=== PATIENT | male | born 1960 | race Caucasian/White ===

== ENCOUNTER 2021-10-22 10:59 | Inpatient (IN) | payer MEDICARE, OTHER ==
[~2021-10-22] VITALS: Ht 170.2 cm; Wt 49.2 kg
[2021-10-22 11:57] LABS: BORDETELLA PARAPERTUSSIS Not Detected (Not Detectd); BORDETELLA PERTUSSIS Not Detected (Not Detectd); CHLAMYDIA PNEUMONIAE Not Detected (Not Detectd); CORONAVIRUS HKU1 Not Detected (Not Detectd); CORONAVIRUS NL63 Not Detected (Not Detectd); CORONAVIRUS OC43 Not Detected (Not Detectd); CORONOAVIRUS 229E Not Detected (Not Detectd); HUMAN METAPNEUMOVIRUS Not Detected (Not Detectd); HUMAN RHINOVIRUS/ENTEROVIRUS Not Detected (Not Detectd); INFLUENZA A Not Detected (Not Detectd); INFLUENZA B Not Detected (Not Detectd); MYCOPLASMA PNEUMONIAE Not Detected (Not Detectd); PARAINFLUENZA VIRUS 1 Not Detected (Not Detectd); PARAINFLUENZA VIRUS 2 Not Detected (Not Detectd); PARAINFLUENZA VIRUS 3 Not Detected (Not Detectd); PARAINFLUENZA VIRUS 4 Not Detected (Not Detectd); RESPIRATORY SYNCYTIAL VIRUS Not Detected (Not Detectd)
[2021-10-22 12:17] LABS: HEMOGLOBIN 8.5 gm/dl (14.0-17.5); RED BLOOD COUNT 3.21 M/UL (4.20-5.50); WHITE BLOOD COUNT 8.8 K/UL (4.5-11.0)
[2021-10-22 12:36] LABS: BUN/CREATININE RATIO 23 (0-10)
[2021-10-22 13:02] LABS: SARS-CoV-2 DETECTED (Not Detectd)
[2021-10-22] MEDS ORDERED: SINGULAIR4 MG PO (15:36)
[2021-10-22] MEDS ORDERED: SIMVASTATIN20 MG PO (15:36)
[2021-10-22] MEDS ORDERED: MIRALAX17 GM PO (15:37)
[2021-10-22] MEDS ORDERED: VOLTAREN ARTHRI20 GM TOP (15:37)
[2021-10-22] MEDS ORDERED: TRULICITY1.5 MG/0.5 SQ (15:38)
[2021-10-22] MEDS ORDERED: ENOXAPARIN40 MG/0.4 SQ (15:38)
[2021-10-22] MEDS ORDERED: HYDROCHLOROTH12.5 M1 PO (15:38)
[2021-10-22] MEDS ORDERED: OMEPRAZOLE20 MG PO (15:39)
[2021-10-22] MEDS ORDERED: LINZESS72 MCG PO (15:39)
[2021-10-23 04:18] LABS: HEMOGLOBIN 8.4 gm/dl (14.0-17.5); RED BLOOD COUNT 3.25 M/UL (4.20-5.50); WHITE BLOOD COUNT 9.3 K/UL (4.5-11.0)
[2021-10-23 05:43] LABS: BUN/CREATININE RATIO 19 (0-10)
[2021-10-24 04:43] LABS: HEMOGLOBIN 7.8 gm/dl (14.0-17.5)
[2021-10-24 04:47] LABS: WHITE BLOOD COUNT 4.1 K/UL (4.5-11.0)
[2021-10-24 05:27] LABS: BUN/CREATININE RATIO 22 (0-10)
[2021-10-25 03:53] LABS: HEMOGLOBIN 8.4 gm/dl (14.0-17.5); RED BLOOD COUNT 3.16 M/UL (4.20-5.50); WHITE BLOOD COUNT 4.7 K/UL (4.5-11.0)
[2021-10-25 23:25] LABS: ADENOVIRUS F 40/41 Not Detected (Negative); ASTROVIRUS Not Detected (Negative); CAMPYLOBACTER Not Detected (Negative); CLOSTRIDIUM DIFFICILE TOX A/B Not Detected (Negative); CRYPTOSPORIDIUM Not Detected (Negative); E.COLI 0157 Not Detected (Negative); ENTAMOEBA HISTOLYTICA Not Detected (Negative); ENTEROAGGREGATIVE E.COLI (EAEC Not Detected (Negative); ENTEROPATHOGENIC E.COLI (EPEC) Not Detected (Negative); ENTEROTOXIGENIC E.COLI (ETEC) Not Detected (Negative); GIARDIA LAMBLIA Not Detected (Negative); NOROVIRUS GI/GII Not Detected (Negative); PLESIOMONAS SHIGELLOIDES Not Detected (Negative); ROTOVIRUS A Not Detected (Negative); SALMONELLA Not Detected (Negative); SAPOVIRUS Not Detected (Negative); SHIG/ENTEROINVAS.ECOLI (EIEC) Not Detected (Negative); SHIGA-LIK TOX.PRO.E.COLI (STEC Not Detected (Negative); VIBRIO Not Detected (Negative); VIBRIO CHOLERAE Not Detected (Negative); YERSINIA ENTEROCOLITICA Not Detected (Negative)
[2021-10-27 11:40] LABS: RED BLOOD COUNT 3.16 M/UL (4.20-5.50); WHITE BLOOD COUNT 5.4 K/UL (4.5-11.0)
[2021-10-27 12:10] LABS: BUN/CREATININE RATIO 10 (0-10)
--- NOTE | 2021-10-27 13:31 | NUR ---
10/27/20 1325 SPOKE WITH PATIENT'S FAMILY. UPDATED ON PT STATUS, FLUIDS, BP, HR, ETC. [facility] WISHES TO CHANGE CODE STATUS FROM FULL CODE TO DNR/DNI. STATED THEY DIDN'T WANT ANY CHEST COMPRESSIONS DONE IT WOULD "PROB DO MORE DAMAGE THAN GOOD" DR VARGAS NOTIFIED WITH NEW ORDERS NOTED.
[2021-10-29 04:16] LABS: HEMOGLOBIN 8.7 gm/dl (14.0-17.5); RED BLOOD COUNT 3.44 M/UL (4.20-5.50)
[2021-10-29 04:20] LABS: WHITE BLOOD COUNT 8.8 K/UL (4.5-11.0)
[2021-10-29 04:35] LABS: BUN/CREATININE RATIO 9 (0-10)
[2021-10-31 12:34] LABS: HEMOGLOBIN 9.7 gm/dl (14.0-17.5); RED BLOOD COUNT 3.69 M/UL (4.20-5.50); WHITE BLOOD COUNT 6.6 K/UL (4.5-11.0)
[2021-10-31 12:43] LABS: BUN/CREATININE RATIO 9 (0-10)
[2021-11-06 03:36] LABS: HEMOGLOBIN 9.2 gm/dl (14.0-17.5); RED BLOOD COUNT 3.39 M/UL (4.20-5.50); WHITE BLOOD COUNT 7.3 K/UL (4.5-11.0)
[2021-11-06 04:02] LABS: BUN/CREATININE RATIO 17 (0-10)
[2021-11-06] MEDS ORDERED: FERROUS GLUCON324 M1 PO (11:54)
[2021-11-06] MEDS ORDERED: MIDODRINE HCL2.5 MG PO (11:54)
[2021-11-06] MEDS ORDERED: MULTAQ 400 MG400 MG PO (11:54)
[2021-11-06] MEDS ORDERED: CHRONULAC20 GM/30 M PO (11:54)
[2021-11-06] MEDS ORDERED: ACETAMINOPHEN325 MG PO (11:54)
[2021-11-06] MEDS ORDERED: [UNRECOGNIZED DRUG - OTHER] PO (11:54)
[2021-11-06] MEDS ORDERED: FLOMAX 0.4 MG0.4 MG PO (11:54)
[2021-11-06] MEDS ORDERED: ASPIRIN EC81 MG PO (11:54)
--- NOTE | 2021-11-06 16:47 | NUR ---
CALLED EMS AT 1330 TODAY TO REQUEST TRANSPORT FOR PATIENT TO [facility]. CALLED BACK TODAY AT 1645 FOR AN UPDATE, THE LIDAR ANALYST TOOK MY NUMBER AND SAID SHE WOULD CALL BACK WITH AN UPDATE
--- NOTE | 2021-11-06 17:44 | NUR ---
CALLED [facility] AGAIN ASKING ABOUT PATIENT TRANSPORT TO [facility]. DISPATCHER RETURNED THE CALL STATING THERE IS A CREW ON THEIR WAY HERE,
== END 2021-11-06 18:37 | DRG 177 ==
LOC: ER1 10:59 → CDU 15:34 → PROG CARE 15:34 → EDBD 15:34 → PROG CARE 17:13
PROVIDERS: Internal Medicine; Internal Medicine Infectious Disease; Physician Assistant Medical; ADMIT Internal Medicine
PROC: 8E0ZXY6 Isolation (ICD-10-PCS; principal; 2021-10-22)
PROC: XW033E5 Introduction of Remdesivir Anti-infective into Peripheral Vein, Percutaneous Approach, New Technology Group 5 (ICD-10-PCS; 2021-10-22)
PROC: 3E0333Z Introduction of Anti-inflammatory into Peripheral Vein, Percutaneous Approach (ICD-10-PCS; 2021-10-23)
PROC: B24BZZZ Ultrasonography of Heart with Aorta (ICD-10-PCS; 2021-10-27)
DX: U07.1 COVID-19 (principal); J12.82 Pneumonia due to coronavirus disease 2019; J96.01 Acute respiratory failure with hypoxia; G93.41 Metabolic encephalopathy; E44.0 Moderate protein-calorie malnutrition; J98.11 Atelectasis; I47.1 Supraventricular tachycardia; K92.2 Gastrointestinal hemorrhage, unspecified; Z68.1 Body mass index [BMI] 19.9 or less, adult; Z66 Do not resuscitate; D50.9 Iron deficiency anemia, unspecified; K56.41 Fecal impaction; I48.0 Paroxysmal atrial fibrillation; I95.9 Hypotension, unspecified; I45.81 Long QT syndrome; F17.220 Nicotine dependence, chewing tobacco, uncomplicated; E78.5 Hyperlipidemia, unspecified; K80.80 Other cholelithiasis without obstruction; R13.10 Dysphagia, unspecified; R53.81 Other malaise; I34.0 Nonrheumatic mitral (valve) insufficiency; Z96.698 Presence of other orthopedic joint implants; K21.9 Gastro-esophageal reflux disease without esophagitis; K80.20 Calculus of gallbladder without cholecystitis without obstruction; E87.6 Hypokalemia; R00.1 Bradycardia, unspecified; M17.12 Unilateral primary osteoarthritis, left knee; F79 Unspecified intellectual disabilities; Z79.01 Long term (current) use of anticoagulants; Z79.82 Long term (current) use of aspirin; Z98.890 Other specified postprocedural states; Z83.3 Family history of diabetes mellitus; Z74.01 Bed confinement status
CPT/HCPCS: ECHO; 36415; 71045; 73560; 74018; 80048; 80053; 81001; 82270; 82550; 82553; 82728; 82962; 83036; 83540; 83550; 83605; 83735; 83874; 83880; 84100; 84132; 84439; 84443; 84484; 85025; 85027; 85610; 85652; 86140; 86850; 86900; 86901; 87040; 87086; 87507; 87633; 92526; 92610; 93005; 93306; 96374; 96375; 97161; 99285; A6212; C9113; J0248; J0696; J1100; J1160; J1650; J1756; J3480; J7030; Q9967